=== PATIENT | male | born 1960 | race Caucasian/White ===

== ENCOUNTER 2024-03-05 06:48 | Day surgery (SDC) | payer OTHER ==
[~2024-03-05] VITALS: Ht 157.5 cm; Wt 69.4 kg
[2024-03-05] MEDS ORDERED: fentaNYL citrate 0.05 MG/ML VIAL ONE (08:09)
[2024-03-05] MEDS ORDERED: LIDOCAINE 2% 100 MG/5 ML UJET TP ONE ×2 (08:09→09:25)
[2024-03-05] MEDS: fentaNYL citrate 0.05 MG/ML VIAL IVP ONE (08:34)
== END 2024-03-05 09:45 | disposition home or self-care (01) ==
LOC: MMU 06:48 → MOR 06:48
PROVIDERS: ATTEND Internal Medicine Gastroenterology
DX: R14.0 Abdominal distension (gaseous) (principal); K63.5 Polyp of colon; K57.30 Diverticulosis of large intestine without perforation or abscess without bleeding; I10 Essential (primary) hypertension; Z80.1 Family history of malignant neoplasm of trachea, bronchus and lung; Z79.899 Other long term (current) drug therapy; Z98.890 Other specified postprocedural states
CPT/HCPCS: 45385; J3010